=== PATIENT | male | born 1955 | race Caucasian/White ===

== ENCOUNTER 2024-08-30 18:42 | Emergency (ER) | payer MEDICARE ==
[~2024-08-30] VITALS: Ht 188 cm; Wt 126.1 kg
[2024-08-30] MEDS ORDERED: LIDOCAINE 5% (PATCH) 1 EA PATCH TP ONE (20:04)
[2024-08-30] MEDS ORDERED: KETOROLAC TROMETHAMINE INJ 30 MG/ML VIAL ONE ×2 (20:04→21:59)
[2024-08-30] MEDS ORDERED: BACLOFEN (10 MG) 10 MG TABLET ONE (20:04)
[2024-08-30] MEDS: LIDOCAINE 5% (PATCH) 1 EA PATCH TP STA (20:12)
[2024-08-30] MEDS: BACLOFEN (10 MG) 10 MG TABLET PO ONE (20:13)
[2024-08-30] MEDS: KETOROLAC TROMETHAMINE INJ 30 MG/ML VIAL IM ONE ×2 (20:13→22:06)
[2024-08-30] MEDS ORDERED: KETO10TA2 PO (21:53)
[2024-08-30] MEDS ORDERED: LIDO30AD10 TP (21:53)
[2024-08-30] MEDS ORDERED: BACL10TA PO (21:53)
[2024-08-30 22:12] VITALS: BP 135/80; TEMP 98.2; O2SAT 98
== END 2024-08-30 22:18 | disposition home or self-care (01) ==
LOC: ER 18:59
DX: M51.369 Other intervertebral disc degeneration, lumbar region without mention of lumbar back pain or lower extremity pain (principal); M54.42 Lumbago with sciatica, left side; E11.9 Type 2 diabetes mellitus without complications; J45.909 Unspecified asthma, uncomplicated; Z79.899 Other long term (current) drug therapy; Z87.442 Personal history of urinary calculi
CPT/HCPCS: 99285; 72131; 96372 ×2; J1885 ×2